=== PATIENT | female | born 1980 | race American Indian/Alaskan Native ===

== ENCOUNTER 2018-12-13 09:00 | Emergency (ER) | payer BC ==
[2018-12-13 09:16] VITALS: RESP 18; TEMP 99.3
[2018-12-13] MEDS ORDERED: Amoxicillin-Clav 875-125 mg Tab PO STA (09:47)
[2018-12-13] MEDS ORDERED: DiphenhydrAMINE 12.5 mg/5 ml LIQ UD (5 ml) PO STA (09:47)
--- NOTE | 2018-12-13 09:52 | ED PDOC ---
Arrival/HPI - General Chief Complaint: Allergic Reaction Historian: Patient - History of Present Illness Narrative History of Present Illness (Text): 12/13/18 09:48 38 y/o female, no significant pmh, nkda, c/o nasal congestion/facial pain/runny nose/itching eyes x 2 days. Pt. stated that she has facial pain, no fall or trauma, associated with nasal congestion and runny nose, itching eyes with no eye pain/change in vision, no neck pain, no painful movement of the eye, no night sweat, no rash, no dizziness, no change in vision, no palpitation, no other medical or psychological complaints. Past Medical History - Provider Review Nursing Documentation Reviewed: Yes - Infectious Disease Hx of Infectious Diseases: None - Reproductive Menopause: No - Cardiac Hx Cardiac Disorders: Yes Hx Hypertension: Yes - Pulmonary Hx Respiratory Disorders: No - Endocrine/Metabolic Hx Diabetes Mellitus Type 2: Yes - Psychiatric Hx Substance Use: No - Anesthesia Hx Anesthesia Reactions: No Family/Social History - Physician Review Nursing Documentation Reviewed: Yes Family/Social History: No Known Family HX Smoking Status: Unknown If Ever Smoked Hx Alcohol Use: No Hx Substance Use: No Allergies/Home Meds Allergies/Adverse Reactions: Allergies No Known Allergies Allergy (Verified 12/13/18 09:16) Home Medications: Home Meds Medication Instructions Recorded Confirmed Labetalol [Trandate] 200 mg PO BID 12/13/18 12/13/18 MetFORMIN [glucOPHAGE] 1,000 mg PO DAILY 12/13/18 12/13/18 Review of Systems - Review of Systems Constitutional: absent: Fatigue, Fevers Eyes: Other (itching eyes). absent: Vision Changes ENT: Rhinorrhea, Sinus Congestion, Other (facial pain). absent: Hearing Changes Respiratory: absent: SOB, Cough Cardiovascular: absent: Chest Pain Gastrointestinal: absent: Abdominal Pain, Diarrhea, Nausea, Vomiting Musculoskeletal: absent: Arthralgias, Back Pain Skin: absent: Rash, Pruritis Neurological: absent: Headache, Dizziness Psychiatric: absent: Anxiety, Depression, Suicidal Ideation Physical Exam Vital Signs Reviewed: Yes Vital Signs Temp Pulse Resp BP Pulse Ox 12/13/18 09:10 99.3 F 90 18 144/94 H 100 Temperature: Afebrile Blood Pressure: Hypertensive Pulse: Regular Respiratory Rate: Normal Appearance: Positive for: Well-Appearing, Non-Toxic, Comfortable Pain Distress: Mild Mental Status: Positive for: Alert and Oriented X 3 - Systems Exam Head: Present: Atraumatic, Normocephalic, Other (+ttp on the rt. maxillary sinus) Pupils: Present: PERRL, Other (no periorbital swelling) Extroacular Muscles: Present: EOMI Conjunctiva: Present: Normal, Other (+rhinorrhea) Ears: Present: NORMAL TM, Normal Canal. No: Erythema Mouth: Present: Moist Mucous Membranes, Normal Tounge, Normal Teeth Pharnyx: No: ERYTHEMA, EXUDATE, TONSILS ENLARGED, Peritonsilar Swelling, Uvular Deviation, Muffled/Hoarse Voice, Strider, Soft Palate/Uvular Edema Nose (External): Present: Atraumatic. No: Abrasion, Contusion, Laceration Nose (Internal): Present: Normal Inspection. No: No Active Bleeding, Rhinorrhea, Septal Hematoma, Epistaxis Neck: Present: Normal Range of Motion, Trachea Midline. No: Meningeal Signs, MIDLINE TENDERNESS, Paraspinal Tenderness, JVD, Lymphadenopathy Respiratory/Chest: Present: Clear to Auscultation, Good Air Exchange. No: Respiratory Distress, Accessory Muscle Use, Wheezes, Decreased Breath Sounds, Rales, Retracting, Rhonchi Cardiovascular: Present: Regular Rate and Rhythm, Normal S1, S2. No: Murmurs Abdomen: Present: Normal Bowel Sounds. No: Tenderness, Distention, Peritoneal Signs, Rebound, Guarding, McBurney's Point Tender, Rovsing's Sign Present, Mass/Organomegaly, Scars Back: Present: Normal Inspection. No: CVA Tenderness, Midline Tenderness, Paraspinal Tenderness, Pain with Leg Raise, Decubitus Ulcer Upper Extremity: Present: Normal Inspection. No: Cyanosis, Edema Lower Extremity: Present: Normal Inspection. No: Edema Neurological: Present: GCS=15, CN II-XII Intact, Speech Normal, Motor Func Grossly Intact, Normal Cerebellar Funct, Gait Normal, Memory Normal, Other (normal finger to nose test, normal heel to cornejo test, no focal neurological deficits) Skin: Present: Warm, Dry, Normal Color. No: Rashes Psychiatric: Present: Alert, Oriented x 3, Normal Insight, Normal Concentration Medical Decision Making ED Course and Treatment: 12/13/18 09:53 -benadryl/prednisone/augmentin -Observe and reassess 12/13/18 10:03 -Pt. wants to be discharged home after medication, stated that she feels well. I advised her to return to the ER for any unresolved resolution of the problem shes here for in 24 hours. -Urine hcg is negative -Pt. feels well and much better, will discharge home. -Discharge home with augmentin, prednisone, claritin d24, motrin, bed rest, follow up with your own pmd and ENT within 2 days, return to the ER for any new or worsening signs or symptoms. - PA / GIN CLERK / Resident Statement / has reviewed & agrees with the documentation as recorded. Disposition/Present on Arrival - Present on Arrival Any Indicators Present on Arrival: No History of DVT/PE: No History of Uncontrolled Diabetes: No Urinary Catheter: No History of Decub. Ulcer: No History Surgical Site Infection Following: None - Disposition Have Diagnosis and Disposition been Completed?: Yes Diagnosis: Sinusitis Disposition: HOME/ ROUTINE Disposition Time: 09:54 Patient Plan: Discharge Patient Problems: Current Active Problems Problem Status Onset Sinusitis Acute Condition: GOOD Additional Instructions: -Discharge home with augmentin, prednisone, claritin d24, motrin, bed rest, follow up with your own pmd and ENT within 2 days, return to the ER for any new or worsening signs or symptoms. Prescriptions: Amoxicillin/Clavulanate [Augmentin 875 MG-125 MG] 1 tab PO BID #14 tab Ibuprofen [Motrin Tab] 600 mg PO QID PRN #30 tab PRN Reason: Other Loratadine/Pseudoephedrine [Claritin-D 24 Hour Tablet] 1 each PO DAILY #7 tab.er.24h Prednisone 50 mg PO DAILY #3 tab Referrals: Yosef Randolph DO [Staff Provider] - [place] up [place] [facility] [place] [facility] [place] - Follow up with primary Forms: [employer] (Bulgarian), WORK NOTE
[2018-12-13 10:21] VITALS: BP 148/95; PULSE 80; O2SAT 98
== END 2018-12-13 10:18 | disposition home or self-care (01) ==
LOC: ED 09:00
DX: J32.9 Chronic sinusitis, unspecified (principal)